=== PATIENT | female | born 1955 | race Two or more races ===

== ENCOUNTER 2019-09-04 19:19 | Inpatient (IN) | payer MEDICARE, MEDICAID ==
[~2019-09-04] VITALS: Ht 167.6 cm; Wt 71.2 kg
[2019-09-04] MEDS ORDERED: LOSA25TA71 PO (20:01)
[2019-09-04] MEDS ORDERED: ONDANSETRON HCL 4 MG/2 ML VIAL IVP PRN ×2 (20:45→21:00)
[2019-09-04] MEDS ORDERED: 0.9% SODIUM CHLORIDE 10 ML SYRINGE IVP PRN (20:45)
[2019-09-04] MEDS ORDERED: ACETAMINOPHEN 325 MG TABLET PO PRN ×2 (20:45→21:00)
[2019-09-04] MEDS ORDERED: BISACODYL 10 MG RECTAL RECTAL SUPPOSITORY PR PRN (21:00)
[2019-09-04] MEDS ORDERED: MAGNESIUM HYDROXIDE SUSPENSION 30 ML UDCUP PO PRN (21:00)
[2019-09-04] MEDS ORDERED: CloNIDine HCL 0.1 MG TABLET PO PRN (21:00)
[2019-09-04] MEDS ORDERED: ZOLPIDEM TARTRATE 5 MG TABLET PO PRN (21:00)
[2019-09-04] MEDS: DOCUSATE SODIUM 100 MG CAPSULE PO SCH (21:22)
[2019-09-04] MEDS: ASCORBIC ACID 500 MG TABLET PO SCH (21:23)
[2019-09-04] MEDS: ZINC SULFATE 220 MG CAPSULE PO SCH (21:23)
[2019-09-04] MEDS: THIAMINE 100 MG/ML 2 ML VIAL IVP SCH (21:24)
[2019-09-04 21:49] LABS: ABG BASE EXCESS -2.5 mmol/L (-2.0-3.0); ABG CARBOXYHEMOGLOBIN 0.1 % (0.0-1.5); ABG HCO3 22.8 mmol/L (22.0-26.0); ABG METHEMOGLOBIN 0.3 % (0.0-1.5); ABG OXYGEN CONTENT 18.5 mL/dL (15.0-23.0); ABG OXYHEMOGLOBIN 95.6 % (94.0-100.0); ABG PCO2 37 mmHg (35-45); ABG PH 7.399 (7.35-7.450); ABG TOTAL HEMOGLOBIN 13.7 G/dL (12.0-18.0); PO2, ARTERIAL BG 84.2 mmHg (79.0-87.0); SOURCE, BLOOD GAS ARTERIAL; TEMPERATURE, FAHRENHEIT, BG 99.8 FAHREN (96.0-98.6)
[2019-09-04 21:49] LABS: D-DIMER 0.48 mg/L FEU (0.00-0.50)
[2019-09-04 21:50] LABS: O2 DEVICE,BLOOD GAS CANNULA (ROOM AIR); SITE, BLOOD GAS LFT RADIAL
[2019-09-04 21:52] LABS: C-REACTIVE PROTEIN QUANT 18.75 mg/dL (0.00-0.30)
[2019-09-04 22:59] VITALS: BP 128/87
[2019-09-05 00:09] VITALS: BP 146/86
[2019-09-05 04:51] VITALS: BP 144/81
[2019-09-05 07:44] VITALS: BP 130/68
[2019-09-05] MEDS: AZITHROMYCIN 500 MG TABLET PO SCH (08:34)
[2019-09-05] MEDS: THIAMINE 100 MG/ML 2 ML VIAL IVP SCH ×2 (08:34→21:51)
[2019-09-05] MEDS: ZINC SULFATE 220 MG CAPSULE PO SCH ×2 (08:34→21:50)
[2019-09-05] MEDS: ASCORBIC ACID 500 MG TABLET PO SCH ×2 (08:34→16:44)
[2019-09-05] MEDS: DOCUSATE SODIUM 100 MG CAPSULE PO SCH ×2 (08:35→21:51)
[2019-09-05] MEDS: PANTOPRAZOLE SODIUM 40 MG DR TABLET PO SCH (08:35)
[2019-09-05] MEDS: HEPARIN SODIUM,PORCINE 5,000 UNITS/ML VIAL SQ SCH ×3 (08:35→16:44)
[2019-09-05 12:17] VITALS: BP 135/78
[2019-09-05 12:51] LABS: BASOPHILS % (AUTO) 0.1 % (0.0-2.0); EOSINOPHILS % (AUTO) 0 % (1.0-6.0); HEMATOCRIT 37.8 % (36-46); HEMOGLOBIN 12.8 g/dL (12.0-16.0); LYMPHOCYTES # (AUTO) 0.8 K/uL (1.0-4.8); LYMPHOCYTES % (AUTO) 8.8 % (22.0-44.0); MEAN CORPUSCULAR HEMOGLOBIN 29.1 pg (26.0-34.0); MEAN CORPUSCULAR HGB CONC 33.8 G/dL (31.0-37.0); MEAN CORPUSCULAR VOLUME 86 fL (80-100); MONOCYTES # (AUTO) 0.5 K/uL (0.1-1.0); MONOCYTES % (AUTO) 5.3 % (2.0-9.0); NEUTROPHILS # (AUTO) 7.4 K/uL (1.8-7.7); PLATELET COUNT (AUTO) 220 K/uL (150-450); RED BLOOD CELL COUNT(AUTO) 4.39 MIL/uL (4.00-5.20); RED CELL DISTRIBUTION WIDTH 13.2 % (11.5-14.5)
[2019-09-05 12:53] LABS: NEUTROPHILS % (AUTO) 85.8 % (40.0-70.0)
[2019-09-05 13:07] LABS: ANION GAP 13 mmol/L (8-16); CALCIUM, TOTAL 8.7 mg/dL (8.8-10.5); CARBON DIOXIDE 25 mmol/L (22-29); CHLORIDE 106 mmol/L (98-107); CREATININE 0.81 mg/dL (0.60-1.30); GLOMERULAR FILTR. RATE CALC > 60 mL/min (>60); GLUCOSE,RANDOM 300 mg/dL (70-110); SODIUM SERUM 144 mmol/L (136-145); UREA NITROGEN, BLOOD 27 mg/dL (7-18)
[2019-09-05 16:36] VITALS: BP 130/78
[2019-09-05 20:35] VITALS: BP 130/82
[2019-09-05] MEDS: MORPHINE SULFATE 2 MG/ML SYRINGE IVP PRN (21:50)
[2019-09-05] MEDS ORDERED: HYDROXYCHLOROQUINE SULFATE 200 MG TABLET PO ONE (23:00)
[2019-09-06] MEDS: ASCORBIC ACID 500 MG TABLET PO SCH ×4 (00:27→21:40)
[2019-09-06] MEDS: HEPARIN SODIUM,PORCINE 5,000 UNITS/ML VIAL SQ SCH ×4 (00:27→23:37)
[2019-09-06] MEDS: HYDROCODONE/ACETAMINOPHEN 5-325 MG TABLET PO PRN ×2 (00:32→12:23)
[2019-09-06] MEDS: MORPHINE SULFATE 2 MG/ML SYRINGE IVP PRN ×2 (02:22→21:40)
[2019-09-06 05:26] VITALS: BP 104/61
[2019-09-06 07:32] LABS: ALANINE AMINOTRANSFERASE 29 U/L (12-78); ALBUMIN 2.5 g/dL (3.4-5.0); ALKALINE PHOSPHATASE 98 U/L (46-116); ANION GAP 9 mmol/L (8-16); ASPARTATE AMINOTRANSFERASE 21 U/L (15-37); BILIRUBIN,TOTAL 0.5 mg/dL (0.1-1.0); C-REACTIVE PROTEIN QUANT 9.48 mg/dL (0.00-0.30); CALCIUM, TOTAL 8.4 mg/dL (8.8-10.5); CARBON DIOXIDE 27 mmol/L (22-29); CHLORIDE 104 mmol/L (98-107); CREATININE 0.91 mg/dL (0.60-1.30); FERRITIN 640 ng/mL (8-252); GLOMERULAR FILTR. RATE CALC > 60 mL/min (>60); GLUCOSE,RANDOM 295 mg/dL (70-110); LACTATE DEHYDROGENASE 268 U/L (81-234); POTASSIUM 3.7 mmol/L (3.5-5.1); SODIUM SERUM 140 mmol/L (136-145); TOTAL PROTEIN, SERUM 7.5 g/dL (6.4-8.2); UREA NITROGEN, BLOOD 27 mg/dL (7-18)
[2019-09-06 08:04] VITALS: BP 119/71
[2019-09-06] MEDS ORDERED: HYDROXYCHLOROQUINE SULFATE 200 MG TABLET PO ONE (08:15)
[2019-09-06] MEDS: ZINC SULFATE 220 MG CAPSULE PO SCH ×2 (09:16→21:41)
[2019-09-06] MEDS: DOCUSATE SODIUM 100 MG CAPSULE PO SCH ×2 (09:16→21:00)
[2019-09-06] MEDS: AZITHROMYCIN 500 MG TABLET PO SCH (09:16)
[2019-09-06] MEDS: PANTOPRAZOLE SODIUM 40 MG DR TABLET PO SCH (09:17)
[2019-09-06] MEDS: THIAMINE 100 MG/ML 2 ML VIAL IVP SCH ×2 (09:17→21:39)
[2019-09-06 12:27] VITALS: BP 148/82
[2019-09-06 16:20] VITALS: BP 129/69
[2019-09-06 20:30] VITALS: BP 130/75
[2019-09-06] MEDS: HYDROXYCHLOROQUINE SULFATE 200 MG TABLET PO SCH (21:40)
[2019-09-07 03:49] VITALS: BP 135/81
[2019-09-07] MEDS: HYDROCODONE/ACETAMINOPHEN 5-325 MG TABLET PO PRN (04:19)
[2019-09-07 07:04] LABS: BASOPHILS % (AUTO) 0.2 % (0.0-2.0); EOSINOPHILS % (AUTO) 0.3 % (1.0-6.0); HEMATOCRIT 36.4 % (36-46); HEMOGLOBIN 12.1 g/dL (12.0-16.0); LYMPHOCYTES # (AUTO) 0.8 K/uL (1.0-4.8); MEAN CORPUSCULAR HEMOGLOBIN 28.2 pg (26.0-34.0); MEAN CORPUSCULAR HGB CONC 33.1 G/dL (31.0-37.0); MEAN CORPUSCULAR VOLUME 85 fL (80-100); MONOCYTES # (AUTO) 0.6 K/uL (0.1-1.0); NEUTROPHILS % (AUTO) 77.5 % (40.0-70.0); PLATELET COUNT (AUTO) 238 K/uL (150-450); RED BLOOD CELL COUNT(AUTO) 4.28 MIL/uL (4.00-5.20); RED CELL DISTRIBUTION WIDTH 12.5 % (11.5-14.5)
[2019-09-07 07:40] LABS: ANION GAP 12 mmol/L (8-16); C-REACTIVE PROTEIN QUANT 9.62 mg/dL (0.00-0.30); CALCIUM, TOTAL 8.4 mg/dL (8.8-10.5); CARBON DIOXIDE 27 mmol/L (22-29); CHLORIDE 102 mmol/L (98-107); CREATININE 0.66 mg/dL (0.60-1.30); FERRITIN 611 ng/mL (8-252); GLOMERULAR FILTR. RATE CALC > 60 mL/min (>60); GLUCOSE,RANDOM 238 mg/dL (70-110); LACTATE DEHYDROGENASE 268 U/L (81-234); POTASSIUM 3.6 mmol/L (3.5-5.1); SODIUM SERUM 141 mmol/L (136-145); UREA NITROGEN, BLOOD 18 mg/dL (7-18)
[2019-09-07 08:00] VITALS: BP 128/78
[2019-09-07] MEDS: HEPARIN SODIUM,PORCINE 5,000 UNITS/ML VIAL SQ SCH ×2 (09:11→16:05)
[2019-09-07] MEDS: ZINC SULFATE 220 MG CAPSULE PO SCH ×2 (09:11→20:55)
[2019-09-07] MEDS: DOCUSATE SODIUM 100 MG CAPSULE PO SCH ×2 (09:12→20:55)
[2019-09-07] MEDS: THIAMINE 100 MG/ML 2 ML VIAL IVP SCH ×2 (09:12→20:55)
[2019-09-07] MEDS: HYDROXYCHLOROQUINE SULFATE 200 MG TABLET PO SCH ×2 (09:12→20:55)
[2019-09-07] MEDS: AZITHROMYCIN 500 MG TABLET PO SCH (09:12)
[2019-09-07] MEDS: PANTOPRAZOLE SODIUM 40 MG DR TABLET PO SCH (09:12)
[2019-09-07] MEDS: ASCORBIC ACID 500 MG TABLET PO SCH ×3 (09:14→20:55)
[2019-09-07] MEDS ORDERED: DEXTROSE 50%-WATER 25 GM/50 ML SYRINGE IVP PRN (10:45)
[2019-09-07 12:30] VITALS: BP 125/72
[2019-09-07] MEDS: INSULIN LISPRO 100 UNITS/ML SQ PRN ×2 (13:27→17:53)
[2019-09-07 13:35] LABS: GLUCOMETER DEV NAME(LOC) 5S.1; GLUCOSE,POINT OF CARE 250 MG/DL (70-110)
[2019-09-07 15:53] VITALS: BP 124/80
[2019-09-07] MEDS ORDERED: MetFORMIN HCL 500 MG TABLET PO SCH (18:00)
[2019-09-07 20:11] VITALS: BP 106/65
[2019-09-07 20:41] LABS: GLUCOMETER DEV NAME(LOC) 5S.1; GLUCOSE,POINT OF CARE 165 MG/DL (70-110)
[2019-09-07] MEDS: MORPHINE SULFATE 2 MG/ML SYRINGE IVP PRN (20:56)
[2019-09-08 00:22] VITALS: BP 117/63
[2019-09-08 04:19] VITALS: BP 123/67
[2019-09-08 07:23] VITALS: BP 132/75
[2019-09-08 07:48] LABS: ALANINE AMINOTRANSFERASE 27 U/L (12-78); ALBUMIN 2.3 g/dL (3.4-5.0); ALKALINE PHOSPHATASE 88 U/L (46-116); ANION GAP 9 mmol/L (8-16); ASPARTATE AMINOTRANSFERASE 26 U/L (15-37); BILIRUBIN,TOTAL 0.4 mg/dL (0.1-1.0); C-REACTIVE PROTEIN QUANT 5.81 mg/dL (0.00-0.30); CALCIUM, TOTAL 8.4 mg/dL (8.8-10.5); CARBON DIOXIDE 27 mmol/L (22-29); CHLORIDE 105 mmol/L (98-107); CREATININE 0.78 mg/dL (0.60-1.30); FERRITIN 645 ng/mL (8-252); GLOMERULAR FILTR. RATE CALC > 60 mL/min (>60); GLUCOSE,RANDOM 153 mg/dL (70-110); LACTATE DEHYDROGENASE 222 U/L (81-234); POTASSIUM 3.5 mmol/L (3.5-5.1); SODIUM SERUM 141 mmol/L (136-145); TOTAL PROTEIN, SERUM 7.4 g/dL (6.4-8.2); UREA NITROGEN, BLOOD 20 mg/dL (7-18)
[2019-09-08] MEDS: HEPARIN SODIUM,PORCINE 5,000 UNITS/ML VIAL SQ SCH ×3 (09:48→17:09)
[2019-09-08] MEDS: THIAMINE 100 MG/ML 2 ML VIAL IVP SCH ×2 (09:48→20:57)
[2019-09-08] MEDS: PANTOPRAZOLE SODIUM 40 MG DR TABLET PO SCH (09:49)
[2019-09-08] MEDS: DOCUSATE SODIUM 100 MG CAPSULE PO SCH ×3 (09:49→21:00)
[2019-09-08] MEDS: ASCORBIC ACID 500 MG TABLET PO SCH ×3 (09:49→20:58)
[2019-09-08] MEDS: HYDROXYCHLOROQUINE SULFATE 200 MG TABLET PO SCH ×2 (09:49→20:57)
[2019-09-08] MEDS: ZINC SULFATE 220 MG CAPSULE PO SCH ×2 (09:50→20:58)
[2019-09-08] MEDS: AZITHROMYCIN 500 MG TABLET PO SCH (09:50)
[2019-09-08 11:41] VITALS: BP 149/81
[2019-09-08 17:09] VITALS: BP 149/78
[2019-09-08] MEDS: INSULIN LISPRO 100 UNITS/ML SQ PRN ×2 (17:23→21:01)
[2019-09-08 21:12] VITALS: BP 128/68
[2019-09-09 05:58] VITALS: BP 122/67
[2019-09-09 06:32] LABS: GLUCOMETER DEV NAME(LOC) 5N.1; GLUCOSE,POINT OF CARE 159 MG/DL (70-110)
[2019-09-09 06:32] LABS: GLUCOMETER DEV NAME(LOC) 5S.2A; GLUCOSE,POINT OF CARE 160 MG/DL (70-110)
[2019-09-09 06:32] LABS: GLUCOMETER DEV NAME(LOC) 5N.1; GLUCOSE,POINT OF CARE 177 MG/DL (70-110)
[2019-09-09 06:32] LABS: GLUCOMETER DEV NAME(LOC) 5N.1; GLUCOSE,POINT OF CARE 145 MG/DL (70-110)
[2019-09-09 07:32] LABS: BASOPHILS % (AUTO) 0.4 % (0.0-2.0); HEMOGLOBIN 12.2 g/dL (12.0-16.0); LYMPHOCYTES # (AUTO) 1.2 K/uL (1.0-4.8); LYMPHOCYTES % (AUTO) 16.9 % (22.0-44.0); MEAN CORPUSCULAR HEMOGLOBIN 29.2 pg (26.0-34.0); MEAN CORPUSCULAR HGB CONC 34.8 G/dL (31.0-37.0); MEAN CORPUSCULAR VOLUME 84 fL (80-100); MONOCYTES # (AUTO) 0.6 K/uL (0.1-1.0); NEUTROPHILS % (AUTO) 71.7 % (40.0-70.0); PLATELET COUNT (AUTO) 289 K/uL (150-450); RED BLOOD CELL COUNT(AUTO) 4.17 MIL/uL (4.00-5.20); RED CELL DISTRIBUTION WIDTH 12.8 % (11.5-14.5)
[2019-09-09 08:00] VITALS: BP 143/90
[2019-09-09 08:06] LABS: ALANINE AMINOTRANSFERASE 29 U/L (12-78); ALBUMIN 2.4 g/dL (3.4-5.0); ALKALINE PHOSPHATASE 87 U/L (46-116); ANION GAP 10 mmol/L (8-16); ASPARTATE AMINOTRANSFERASE 29 U/L (15-37); BILIRUBIN,TOTAL 0.4 mg/dL (0.1-1.0); C-REACTIVE PROTEIN QUANT 2.76 mg/dL (0.00-0.30); CALCIUM, TOTAL 8.4 mg/dL (8.8-10.5); CARBON DIOXIDE 26 mmol/L (22-29); CHLORIDE 104 mmol/L (98-107); CREATININE 0.72 mg/dL (0.60-1.30); FERRITIN 587 ng/mL (8-252); GLOMERULAR FILTR. RATE CALC > 60 mL/min (>60); GLUCOSE,RANDOM 164 mg/dL (70-110); LACTATE DEHYDROGENASE 208 U/L (81-234); POTASSIUM 3.3 mmol/L (3.5-5.1); SODIUM SERUM 140 mmol/L (136-145); TOTAL PROTEIN, SERUM 7.4 g/dL (6.4-8.2); UREA NITROGEN, BLOOD 18 mg/dL (7-18)
[2019-09-09] MEDS: ASCORBIC ACID 500 MG TABLET PO SCH ×2 (08:15→16:08)
[2019-09-09] MEDS: HYDROXYCHLOROQUINE SULFATE 200 MG TABLET PO SCH (08:15)
[2019-09-09] MEDS: ZINC SULFATE 220 MG CAPSULE PO SCH (08:15)
[2019-09-09] MEDS: PANTOPRAZOLE SODIUM 40 MG DR TABLET PO SCH (08:16)
[2019-09-09] MEDS: AZITHROMYCIN 500 MG TABLET PO SCH (08:16)
[2019-09-09] MEDS: THIAMINE 100 MG/ML 2 ML VIAL IVP SCH (08:16)
[2019-09-09] MEDS: HEPARIN SODIUM,PORCINE 5,000 UNITS/ML VIAL SQ SCH ×3 (08:16→16:08)
[2019-09-09] MEDS: DOCUSATE SODIUM 100 MG CAPSULE PO SCH (08:16)
[2019-09-09] MEDS ORDERED: POTASSIUM CHLORIDE 10 MEQ ER TABLET PO ONE (12:00)
[2019-09-09 13:17] VITALS: BP 126/68
[2019-09-09 15:53] VITALS: BP 119/76
[2019-09-09 18:27] LABS: GLUCOMETER DEV NAME(LOC) 5N.3; GLUCOSE,POINT OF CARE 160 MG/DL (70-110)
== END 2019-09-09 17:21 | disposition home or self-care (01) | DRG 177 ==
LOC: EMS 19:21 → 5N 20:52
PROVIDERS: ADMIT Internal Medicine; ATTEND Internal Medicine
DX: U07.1 COVID-19 (principal); J12.89 Other viral pneumonia; J96.91 Respiratory failure, unspecified with hypoxia; I10 Essential (primary) hypertension; E11.9 Type 2 diabetes mellitus without complications; R07.89 Other chest pain
CPT/HCPCS: 36600; 82728; 82805; 83615; 84145; 85379; 85384; 86140; 86850; 86900; 86901; 93005; J1644; J2270; J3411